=== PATIENT | female | born 1985 | race American Indian/Alaskan Native ===

== ENCOUNTER → 2018-03-10 03:08 | Emergency (ER) | payer MEDICAID | END | disposition left against medical advice (07) | LOC: ED 03:08 | DX: M25.579 Pain in unspecified ankle and joints of unspecified foot (principal); Z53.21 Procedure and treatment not carried out due to patient leaving prior to being seen by health care provider ==

== ENCOUNTER 2018-04-14 09:53 | Outpatient (CLI) | payer MEDICAID ==
--- NOTE | 2018-04-14 10:34 | XRay Report ---
RIGHT TIBIA/FIBULA: History: Displaced comminuted fracture of shaft of right tibia The internally fixated tibial shaft fracture and non-fixated fibular shaft fracture near the same level are unchanged in position and alignment since 03/09/18. Calcified callus is identified at both fracture sites consistent with interval healing. No new findings. IMPRESSION: Healing right tibia and fibula fractures as described.
== END 2018-04-14 09:54 | disposition home or self-care (01) ==
LOC: XRAY 09:53
PROVIDERS: ATTEND Orthopaedic Surgery
DX: S82.251A Displaced comminuted fracture of shaft of right tibia, initial encounter for closed fracture (principal); I10 Essential (primary) hypertension; D64.9 Anemia, unspecified

== ENCOUNTER 2021-01-03 12:48 | Outpatient (CLI) | payer MEDICAID ==
--- NOTE | 2021-01-03 13:39 | XRay Report ---
RIGHT TIBIA AND FIBULA 4 VIEWS INDICATION / CLINICAL INFORMATION: DISPLACED COMMINUTED FRACTURE OF SHAFT OF RIGHT TIBIA. COMPARISON: 11/04/2018 FINDINGS: ORIF of distal tibial fracture with an intramedullary nail in place. Old healed distal fibular fractu re. Signer Name: Chun Bui MD FACMervat Signed: 01/03/2021 1:34 PM Workstation Name: [id number]
== END 2021-01-03 12:49 | disposition home or self-care (01) ==
LOC: XRAY 12:48
PROVIDERS: ATTEND Orthopaedic Surgery
DX: S82.251D Displaced comminuted fracture of shaft of right tibia, subsequent encounter for closed fracture with routine healing (principal); M79.604 Pain in right leg; X58.XXXD Exposure to other specified factors, subsequent encounter

== ENCOUNTER 2021-06-06 10:18 | Outpatient (CLI) | payer MEDICAID ==
[2021-06-06 10:48] LABS: Basophils % (Auto) 0.5 % (0.0-1.8); Eosinophils # (Auto) 0.1 K/mm3 (0.0-0.4); Eosinophils % (Auto) 1.3 % (0.0-4.3); Hematocrit 35.4 % (30.3-42.9); Hemoglobin 11.4 gm/dl (10.1-14.3); Mean Corpuscular HGB Conc 32 % (30-34); Mean Corpuscular Volume 72 fl (79-97); Monocytes # (Auto) 0.5 K/mm3 (0.0-0.8); Monocytes % (Auto) 5.6 % (0.0-7.3); Platelet Count 231 K/mm3 (140-440); Red Cell Distribution Width 15.7 % (13.2-15.2)
[2021-06-06 11:16] LABS: % Iron Saturation 14.37 %; Alanine Aminotransferase 15 units/L (7-56); Albumin 3.9 g/dL (3.9-5); Blood Urea Nitrogen 11 mg/dL (7-17); Calcium 9.5 mg/dL (8.4-10.2); Chol/HDL Ratio 4.62 %; HDL Cholesterol 35 mg/dL (40-59); Hemolysis Index 3; Iron 51 ug/dL (37-170); LDL Cholesterol,Direct 129 mg/dL (50-130); Total Iron Binding Capacity 355 mcg/dL (250-450)
[2021-06-06 11:48] LABS: BUN/Creatinine Ratio 18
== END 2021-06-06 10:19 | disposition home or self-care (01) ==
LOC: LAB 10:18
PROVIDERS: ATTEND Surgery
DX: Z13.1 Encounter for screening for diabetes mellitus (principal); E66.01 Morbid (severe) obesity due to excess calories; K30 Functional dyspepsia; E55.9 Vitamin D deficiency, unspecified
CPT/HCPCS: 36415; 80053; 80061; 82306; 82607; 82728; 83036; 83550; 84443; 85025

== ENCOUNTER 2021-07-10 06:45 | Day surgery (SDC) | payer MEDICAID ==
[2021-07-10] MEDS ORDERED: SODIUM CHLORIDE 0.9% 1000 ML 1,000 ML IV SCH (07:00)
--- NOTE | 2021-07-10 08:20 | Anesthesia Day of Surgery ---
Anesthesia Day of Surgery - Day of Surgery Patient Examined: Yes Patient H&P Reviewed: Yes Patient is NPO: Yes
--- NOTE | 2021-07-10 08:21 | Anesthesia Consultation ---
Anesthesia Consult and Med Hx Date of service: 07/10/21 - Airway Anesthetic Teeth Evaluation: Good ROM Head & Neck: Adequate Mental/Hyoid Distance: Adequate Mallampati Class: Class III Intubation Access Assessment: Probably Good - Pre-Operative Health Status ASA Pre-Surgery Classification: ASA3 Proposed Anesthetic Plan: MAC - Pulmonary Hx Asthma: No COPD: No Hx Pneumonia: No - Cardiovascular System Hx Hypertension: Yes (Pre-eclampsia and occasional htn now) - Central Nervous System Hx Seizures: No Hx Psychiatric Problems: No - Endocrine Hx Renal Disease: No (current proteinuria) Hx End Stage Renal Disease: No Hx Hypothyroidism: No Hx Hyperthyroidism: No - Hematic Hx Anemia: Yes (1st ) Hx Sickle Cell Disease: No - Other Systems Hx Alcohol Use: No Hx Obesity: Yes (Super obese, BMI-51)
--- NOTE | 2021-07-10 09:08 | Operative Report ---
Operative Report Operative Report: DATE: 07/10/2021 SURGERY: Upper endoscopy. SURGEON: Brooke Diamond M.D. PROCEDURE: EGD with biopsy PRE OP DX: morbid obesity, GERD POST OP DX: morbid obesity, GERD TYPE OF ANESTHESIA: MAC. ESTIMATED BLOOD LOSS: None. COMPLICATIONS: None. SPECIMENS REMOVED: antral biopsy FINDINGS: 1. Small hiatal hernia. 2. Otherwise, normal esophagus, stomach and first portion of duodenum. INDICATIONS:INDICATION FOR PROCEDURE: Patient is a 35-year-old female with a long history of morbid obesity. She is planned to have a weight loss procedure and is here for preoperative planning EGD. PROCEDURE DETAILS: After consent was reviewed, patient was taken back to the operating room where patient was placed in the left lateral decubitus position and a bite block was placed in the mouth. After a time-out was called, MAC anesthesia was initiated. I then passed the endoscope into her oropharynx, into her esophagus, visualized the entire esophagus, which was all within normal limits. Z-line was noted to about 40 cm from incisors. I then visualized the stomach and the first portion of the duodenum and there were no abnormalities I could clearly visualize except for antral gastritis. A cold forceps biopsy of the antrum was taken and will be sent to pathology to evaluate for H.pylori. I then retroflexed the scope in the stomach and visualized the hiatus and I could see a small hiatal hernia. I then desufflated the stomach and removed the endoscope. Patient tolerated procedure well and was transferred to recovery room in good and stable condition.
--- NOTE | 2021-07-10 09:09 | Discharge Summary ---
Providers - Providers Date of Admission: 07/10/2021 Date of discharge: 07/10/21 Attending physician: NADINE SEXTON MD Primary care physician: INFRASTRUCTURE MANAGER Hospitalization Reason for admission: pre-op egd for planned bariatric surgery Condition: Good Procedures: egd with bx Hospital course: Pt presented for a pre-op EGD as part of planning for up coming bariatric surgery. Procedure was uneventful and pt recovered well and was discharged to home. Disposition: 01 HOME / SELF CARE / HOMELESS Final Discharge Diagnosis (Prints w/discharge instructions): morbid obesity, gerd Core Measure Documentation - Palliative Care Palliative Care/ Comfort Measures: Not Applicable - Core Measures Any of the following diagnoses?: none Exam - Physical Exam Narrative exam: unchanged from pre-op Plan Activity: advance as tolerated Diet: low carbohydrate Follow up with: PRIMARY MD RODNEY [Primary Care Provider] - 7 Days
[2021-07-10] MEDS ORDERED: LIDOCAINE MPF (2%) 20 MG/1 ML VIAL 5 ML ONE (09:45)
[2021-07-10] MEDS ORDERED: MIDAZOLAM 2 MG/2 ML INJ ONE (09:45)
[2021-07-10] MEDS ORDERED: propofoL 200 MG/20 ML VIAL IV ONE ×2 (09:46)
--- NOTE | 2021-07-10 14:09 | Post Anesthesia Evaluation ---
- Post Anesthesia Evaluation Patient Participated: Yes Airway Patent: Yes Stable Respiratory Function: Yes Nausea/Vomiting: No Temp > 96.8F: Yes Pain Manageable: Yes Adequeate Hydration: Yes Anesthesia Complications: No Block Receding Appropriately: Not Applicable Patient on Ventilator: No
[2021-07-10 14:38] VITALS: BP 116/67
== END 2021-07-10 14:50 | disposition home or self-care (01) ==
LOC: GIO 06:45
PROVIDERS: ATTEND Surgery
DX: E66.01 Morbid (severe) obesity due to excess calories (principal); K21.9 Gastro-esophageal reflux disease without esophagitis; K29.50 Unspecified chronic gastritis without bleeding; K44.9 Diaphragmatic hernia without obstruction or gangrene; K31.89 Other diseases of stomach and duodenum; B96.81 Helicobacter pylori [H. pylori] as the cause of diseases classified elsewhere; I10 Essential (primary) hypertension; D64.9 Anemia, unspecified; M19.90 Unspecified osteoarthritis, unspecified site; F32.9 Major depressive disorder, single episode, unspecified; Z79.899 Other long term (current) drug therapy; Z98.890 Other specified postprocedural states; Z82.49 Family history of ischemic heart disease and other diseases of the circulatory system; Z83.3 Family history of diabetes mellitus; Z68.43 Body mass index [BMI] 50.0-59.9, adult
CPT/HCPCS: 43239; 88305; 88342; J2250; J2704; J7030

== ENCOUNTER → 2021-07-10 | Outpatient (CLI) | payer MEDICAID | END | disposition home or self-care (01) | LOC: SLR 11:00 | PROVIDERS: ATTEND Surgery | DX: G47.30 Sleep apnea, unspecified (principal) | CPT/HCPCS: G0399 ==

== ENCOUNTER 2021-07-25 08:37 | Outpatient (CLI) | payer MEDICAID ==
--- NOTE | 2021-07-25 09:34 | XRay Report ---
CHEST 2 VIEWS INDICATION: MORBID OBESITY. COMPARISON: None. FINDINGS: Support devices: None. Heart: Within normal limits. Lungs/Pleura: No acute air space or interstitial disease. No significant pleural effusion. IMPRESSION: No acute findings. Signer Name: Isaias Holt MD Signed: 07/25/2021 9:30 AM Workstation Name: [id number]
--- NOTE | 2021-07-25 10:34 | Fluoroscopy Report ---
BARIUM SWALLOW Indication: MORBID OBESITY. Technique: Single and double contrast barium technique utilized to evaluate the esophagus. FINDINGS: To begin the exam, swallowing was evaluated in the lateral position under direct fluorosco py. Swallowing was normal. No mucosal irregularity, mass, mass effect, or critical stenosis. There were no abnormal tertiary c ontractions as seen with dysmotility. No gastroesophageal reflux. IMPRESSION: Unremarkable exam. Fluoroscopic time: 1.3 minutes Number of fluoroscopic images: 7 Signer Name: Orville Bains Jr, MD Signed: 07/25/2021 10:30 AM Workstation Name: [id number]
== END 2021-07-25 08:38 | disposition home or self-care (01) ==
LOC: PF 08:37
PROVIDERS: ATTEND Surgery
DX: E66.01 Morbid (severe) obesity due to excess calories (principal)
CPT/HCPCS: 71046; 74220; 94010; 94726; 94729

== ENCOUNTER 2021-10-05 14:22 | Outpatient (CLI) | payer MEDICAID ==
[2021-10-05 15:19] LABS: Basophils # (Auto) 0.1 K/mm3 (0.0-0.1); Basophils % (Auto) 0.6 % (0.0-1.8); Eosinophils # (Auto) 0.1 K/mm3 (0.0-0.4); Eosinophils % (Auto) 1.3 % (0.0-4.3); Hematocrit 37.1 % (30.3-42.9); Hemoglobin 11.6 gm/dl (10.1-14.3); Lymphocytes # (Auto) 3.1 K/mm3 (1.2-5.4); Lymphocytes % (Auto) 30.5 % (13.4-35.0); Mean Corpuscular HGB Conc 31 % (30-34); Mean Corpuscular Volume 72 fl (79-97); Monocytes # (Auto) 0.6 K/mm3 (0.0-0.8); Monocytes % (Auto) 5.5 % (0.0-7.3); Platelet Count 208 K/mm3 (140-440); Red Blood Count 5.16 M/mm3 (3.65-5.03); Red Cell Distribution Width 17.2 % (13.2-15.2)
[2021-10-05 15:30] LABS: % Iron Saturation 17.78 %; Alanine Aminotransferase 23 units/L (7-56); Albumin 4.1 g/dL (3.9-5); BUN/Creatinine Ratio 14; Blood Urea Nitrogen 11 mg/dL (7-17); Calcium 9.7 mg/dL (8.4-10.2); Chol/HDL Ratio 4.83 %; HDL Cholesterol 31 mg/dL (40-59); Hemolysis Index 2; Iron 56 ug/dL (37-170); LDL Cholesterol,Direct 107 mg/dL (50-130); Total Iron Binding Capacity 315 mcg/dL (250-450)
== END 2021-10-05 14:23 | disposition home or self-care (01) ==
LOC: LAB 14:22
PROVIDERS: ATTEND Surgery
DX: Z13.29 Encounter for screening for other suspected endocrine disorder (principal); Z13.21 Encounter for screening for nutritional disorder; K30 Functional dyspepsia; E55.9 Vitamin D deficiency, unspecified; K90.9 Intestinal malabsorption, unspecified; E66.01 Morbid (severe) obesity due to excess calories; Z98.84 Bariatric surgery status
CPT/HCPCS: 36415; 80053; 80061; 82306; 82607; 82728; 83550; 83970; 84425; 84443; 85025

== ENCOUNTER 2021-12-14 10:40 | Outpatient (CLI) | payer MEDICAID ==
[2021-12-14 11:23] LABS: Hematocrit 36.4 % (30.3-42.9); Hemoglobin 11.5 gm/dl (10.1-14.3); Mean Corpuscular Volume 72 fl (79-97); Red Blood Count 5.04 M/mm3 (3.65-5.03)
[2021-12-14 11:24] LABS: Basophils % (Auto) 0.4 % (0.0-1.8); Eosinophils # (Auto) 0.2 K/mm3 (0.0-0.4); Eosinophils % (Auto) 1.6 % (0.0-4.3); Lymphocytes # (Auto) 2.8 K/mm3 (1.2-5.4); Mean Corpuscular HGB Conc 32 % (30-34); Monocytes # (Auto) 0.6 K/mm3 (0.0-0.8); Monocytes % (Auto) 4.9 % (0.0-7.3); Platelet Count 245 K/mm3 (140-440); Red Cell Distribution Width 16.2 % (13.2-15.2)
[2021-12-14 11:38] LABS: Alanine Aminotransferase 18 units/L (7-56); Blood Urea Nitrogen 12 mg/dL (7-17); Calcium 9.8 mg/dL (8.4-10.2); Chol/HDL Ratio 5.16 %; HDL Cholesterol 31 mg/dL (40-59); Hemolysis Index 0; Iron 38 ug/dL (37-170); LDL Cholesterol,Direct 115 mg/dL (50-130); Total Iron Binding Capacity 325 mcg/dL (250-450)
[2021-12-14 11:43] LABS: BUN/Creatinine Ratio 17
== END 2021-12-14 10:41 | disposition home or self-care (01) ==
LOC: LAB 10:40
PROVIDERS: ATTEND Surgery
DX: Z13.21 Encounter for screening for nutritional disorder (principal); Z13.29 Encounter for screening for other suspected endocrine disorder; K30 Functional dyspepsia; E66.01 Morbid (severe) obesity due to excess calories; K90.9 Intestinal malabsorption, unspecified; E55.9 Vitamin D deficiency, unspecified; Z98.84 Bariatric surgery status
CPT/HCPCS: 36415; 80053; 80061; 82306; 82607; 82728; 83550; 83970; 84425; 84443; 85025

== ENCOUNTER 2022-02-07 10:27 | Day surgery (SDC) | payer MEDICAID ==
--- NOTE | 2022-02-01 14:54 | XRay Report ---
Right tibia and fibula 2 views INDICATION: Hardware FINDINGS: Postoperative change with intramedullary victor manuel in the tibia. Healed fracture distal tibia. Th ere is a fracture fibular shaft with osteophytes region along lateral aspects however central lucency persists. Signer Name: Abdirizak Roche MD Signed: 02/01/2022 2:50 PM Workstation Name: [id number]
[2022-02-01 15:08] VITALS: BP 138/84
[~2022-02-07 10:27] MED LIST: ceFAZolin/STERILE WATER 2 GM/20 ML SYRINGE IV NR
== END 2022-02-07 10:28 | disposition home or self-care (01) ==
LOC: OR 10:27
PROVIDERS: ATTEND Orthopaedic Surgery
DX: T84.89XA Other specified complication of internal orthopedic prosthetic devices, implants and grafts, initial encounter (principal); Z53.8 Procedure and treatment not carried out for other reasons; I10 Essential (primary) hypertension; K21.9 Gastro-esophageal reflux disease without esophagitis; E66.9 Obesity, unspecified; M19.90 Unspecified osteoarthritis, unspecified site; F32.9 Major depressive disorder, single episode, unspecified; Z83.3 Family history of diabetes mellitus; Z20.822 Contact with and (suspected) exposure to COVID-19; Z98.891 History of uterine scar from previous surgery; Z87.440 Personal history of urinary (tract) infections; Z80.8 Family history of malignant neoplasm of other organs or systems; Z82.49 Family history of ischemic heart disease and other diseases of the circulatory system; X58.XXXA Exposure to other specified factors, initial encounter; Y93.89 Activity, other specified; Y92.89 Other specified places as the place of occurrence of the external cause; Y99.8 Other external cause status
CPT/HCPCS: 73590; U0003

== ENCOUNTER 2022-03-01 06:44 | Day surgery (SDC) | payer MEDICAID ==
[~2022-03-01 06:44] MED LIST changes: +ACETAMINOPHEN 500 MG TAB PO SCH; +GABAPENTIN 300 MG CAP PO SCH; +LACTATED RINGERS 1,000 ML IV SCH; +MIDAZOLAM 2 MG/2 ML INJ IV SCH; +SCOPOLAMINE TRANSDERMAL PATCH 72 HR TD SCH
[2022-03-01] MEDS ORDERED: BACTERIOSTATIC SODIUM CHLORIDE 0.9% 30 ML VIAL INFILTRATI ONE (07:07)
[2022-03-01] MEDS ORDERED: propofoL 200 MG/20 ML VIAL IV ONE (07:12)
[2022-03-01] MEDS ORDERED: HYDROmorphone 1 MG/1 ML INJ ONE (07:12)
[2022-03-01] MEDS ORDERED: ONDANSETRON 4 MG/2 ML INJ IV PRN (07:26)
[2022-03-01] MEDS ORDERED: oxyCODONE /ACETAMINOPHEN 5-325MG TAB PO PRN (07:26)
--- NOTE | 2022-03-01 07:26 | Anesthesia Consultation ---
Anesthesia Consult and Med Hx Date of service: 03/01/22 - Airway Anesthetic Teeth Evaluation: Good ROM Head & Neck: Adequate Mental/Hyoid Distance: Adequate Mallampati Class: Class III Intubation Access Assessment: Probably Good (previous easy intubation w/ MAC 3) - Pre-Operative Health Status ASA Pre-Surgery Classification: ASA2 Proposed Anesthetic Plan: General - Pulmonary Hx Smoking: No Hx Respiratory Symptoms: No Hx Sleep Apnea: No - Cardiovascular System Hx Hypertension: No - Central Nervous System CVA: No - Endocrine Hx Renal Disease: No Hx Liver Disease: No Hx Insulin Dependent Diabetes: No Hx Non-Insulin Dependent Diabetes: No Hx Thyroid Disease: No - Other Systems Hx Obesity: Yes (BMI 42 s/p gastric sleeve 08/2021) - Additional Comments Anesthesia Medical History Comments: Hx PONV.
[2022-03-01] MEDS ORDERED: BUPIVACAINE/PF (0.5%) 5 MG/1 ML 10 ML VIAL INFILTRATI ONE ×2 (09:01→09:12)
[2022-03-01] MEDS ORDERED: dexAMETHasone 20 MG/5 ML VIAL ONE (09:03)
[2022-03-01] MEDS ORDERED: LIDOCAINE MPF (2%) 20 MG/1 ML VIAL 5 ML ONE (09:03)
[2022-03-01] MEDS ORDERED: SODIUM CHLORIDE 0.9% IRR 1,500 ML BOTTLE IR ONE (09:12)
[2022-03-01] MEDS ORDERED: KETOROLAC 30 MG/1 ML INJ ONE (09:53)
[2022-03-01] MEDS ORDERED: SODIUM CHLORIDE 0.9% 50 ML ONE (09:54)
[2022-03-01] MEDS ORDERED: MORPHINE 10 MG/1 ML INJ ONE (09:54)
[2022-03-01] MEDS ORDERED: SODIUM CHLORIDE 0.9% 0 ML ONE (09:54)
[2022-03-01] MEDS ORDERED: SODIUM CHLORIDE 0.9% 250 ML IVPB IV ONE (10:05)
[2022-03-01] MEDS ORDERED: MORPHINE 10 MG/1 ML INJ IM ONE (10:05)
--- NOTE | 2022-03-01 10:43 | Procedure Note ---
Date of procedure: 03/01/22 Pre-op diagnosis: Hardware irritation right leg status post IM nail Post-op diagnosis: same Procedure: Removal of hardware right tibia Procedure The patient was brought to the OR placed in the OR table in supine position following induction with general anesthesia the patient's right lower extremity was prepped and draped in the usual sterile manner. A timeout procedure was done to identify the patient and the correct operative site. The leg was exsa nguinated followed by inflation of the pneumatic tourniquet to 300 mmHg. Using the previous a midline incision over the patella tendon this was then taken down sharply through skin and subcu the patella tendon was then incised longitudinally the proximal aspect of the intramedullary nail was identified using rongeurs curettes the through screw threads were were seen next the extraction device was applied under C-arm visualization the proximal screws were removed without incident next the distal locking screw was identified radiographically stab wounds were made over the head of the screw then the screw was removed again without incident the wounds were then copiously irrigated a pain cocktail mixture was injected into the incision sites as well as geniculate nerve blocks routine postop dressings were applied patient tolerated procedure there were no complications Anesthesia: GETA Surgeon: ULI HINTON (Shravan Alston, 1st assist) Estimated blood loss: 50-100ml Pathology: none Condition: stable Disposition: PACU
[2022-03-01] MEDS ORDERED: LACTATED RINGERS 1,000 ML ONE (10:52)
[2022-03-01] MEDS ORDERED: ONDANSETRON 4 MG/2 ML INJ ONE (10:52)
[2022-03-01] MEDS: HYDROmorphone 0.5 MG/0.5 ML INJ IV PRN ×2 (11:11→11:21)
--- NOTE | 2022-03-01 11:52 | XRay Report ---
INTRAOPERATIVE FLUOROSCOPY: RIGHT TIBIA AND FIBULA INDICATION / CLINICAL INFORMATION: RIGHT TIB/FIB HARDWARE IRRITATION. TECHNIQUE: Intraoperative spot images were obtained during the procedure. FINDINGS: Intraoperative images were obtained to document hardware removal. No radiopaque hardware remains. Fluoroscopy Time: 18 seconds. Fluoroscopy Images: 2. Signer Name: Fred Dugan MD Signed: 03/01/2022 11:48 AM Workstation Name: [id number]
[2022-03-01 12:19] VITALS: BP 144/78
--- NOTE | 2022-03-01 12:33 | Anesthesia Day of Surgery ---
Anesthesia Day of Surgery - Day of Surgery Patient Examined: Yes Patient H&P Reviewed: Yes Patient is NPO: Yes
--- NOTE | 2022-03-01 12:33 | Post Anesthesia Evaluation ---
- Post Anesthesia Evaluation Patient Participated: Yes Airway Patent: Yes Stable Respiratory Function: Yes Nausea/Vomiting: No Temp > 96.8F: Yes Pain Manageable: Yes Adequeate Hydration: Yes Anesthesia Complications: No
== END 2022-03-01 06:45 | disposition home or self-care (01) ==
LOC: OR 06:44
PROVIDERS: ATTEND Orthopaedic Surgery
DX: T84.89XA Other specified complication of internal orthopedic prosthetic devices, implants and grafts, initial encounter (principal); T84.84XA Pain due to internal orthopedic prosthetic devices, implants and grafts, initial encounter; Z20.822 Contact with and (suspected) exposure to COVID-19; E66.9 Obesity, unspecified; K21.9 Gastro-esophageal reflux disease without esophagitis; M19.90 Unspecified osteoarthritis, unspecified site; F32.9 Major depressive disorder, single episode, unspecified; Z80.8 Family history of malignant neoplasm of other organs or systems; Z79.899 Other long term (current) drug therapy; Z98.891 History of uterine scar from previous surgery; Z87.440 Personal history of urinary (tract) infections; Z98.890 Other specified postprocedural states; Z83.3 Family history of diabetes mellitus; Z68.41 Body mass index [BMI] 40.0-44.9, adult; Z82.49 Family history of ischemic heart disease and other diseases of the circulatory system; Y92.89 Other specified places as the place of occurrence of the external cause; Y82.8 Other medical devices associated with adverse incidents
CPT/HCPCS: 20680; 36415; 73590; 84703; J0690; J1100; J1170; J2250; J2270; J2405; J2704; J3490; J7050; J7120; U0003; J1885

== ENCOUNTER 2022-03-02 17:50 | Emergency (ER) | payer MEDICAID ==
[2022-03-02 18:27] VITALS: BP 137/80
== END 2022-03-03 01:00 | disposition left against medical advice (07) ==
LOC: ED 17:50
DX: G89.18 Other acute postprocedural pain (principal); Z53.21 Procedure and treatment not carried out due to patient leaving prior to being seen by health care provider

== ENCOUNTER 2022-04-19 10:46 | Outpatient (CLI) | payer MEDICAID ==
[2022-04-19 11:25] LABS: Hematocrit 33.9 % (30.3-42.9); Hemoglobin 10.7 gm/dl (10.1-14.3); Mean Corpuscular HGB Conc 32 % (30-34); Mean Corpuscular Volume 70 fl (79-97); Platelet Count 234 K/mm3 (140-440); Red Blood Count 4.83 M/mm3 (3.65-5.03)
[2022-04-19 11:53] LABS: Alanine Aminotransferase 10 units/L (7-56); Albumin 4.1 g/dL (3.9-5); BUN/Creatinine Ratio 16; Blood Urea Nitrogen 11 mg/dL (7-17); Calcium 9.2 mg/dL (8.4-10.2); Chol/HDL Ratio 5.28 %; HDL Cholesterol 32 mg/dL (40-59); Hemolysis Index 0; Iron 32 ug/dL (37-170); LDL Cholesterol,Direct 128 mg/dL (50-130); Total Iron Binding Capacity 346 mcg/dL (250-450)
== END 2022-04-19 10:47 | disposition home or self-care (01) ==
LOC: LAB 10:46
PROVIDERS: ATTEND Surgery
DX: Z13.21 Encounter for screening for nutritional disorder (principal); Z13.29 Encounter for screening for other suspected endocrine disorder; E11.9 Type 2 diabetes mellitus without complications; E66.01 Morbid (severe) obesity due to excess calories; K90.9 Intestinal malabsorption, unspecified; K30 Functional dyspepsia; Z98.84 Bariatric surgery status
CPT/HCPCS: 36415; 80053; 80061; 82306; 82607; 82728; 83036; 83550; 84425; 84443; 85027